=== PATIENT | female | born 1970 | race African-American/Black ===

== ENCOUNTER 2019-03-16 05:27 | Inpatient (IN) | payer OTHER ==
[~2019-03-16] VITALS: Ht 162.6 cm; Wt 83.0 kg
[~2019-03-16 05:27] MED LIST: ACETAMINOPHEN325 M1 PO; BENTYL 20 MG TA20 M1 PO; CLONIDINE HCL0.2 M2 PO; COMPAZINE10 MG PO; CREON DR 12,001 EACH PO; DARVOCET-N 1001 EACH PO; FISH OIL 500 M1 EACH PO; FISH OIL500 M1 PO; GABAPENTIN 100100 MG PO; HYDROCHLOROTHIA25 M1 PO; K-DUR 20 MEQ T20 MEQ PO; LANTUS SC; LISINOPRIL40 MG PO; METOPROLOL ER-1 EACH PO; MIRALAX17 GM PO; MIRALAX255 GM PO; NEURONTIN600 MG PO; NORCO 5-325 TA1 EACH PO; NORVASC 5 MG TAB5 MG PO; NOVOLOG FL100 UNIT/M SUBQ; NOVOLOG100 UNIT/1 SQ; NOVOLOG100 UNIT/1 SUBQ; OMEGA-31000 M1 PO; PERCOCET 10-321 EAC1 PO; PERCOCET 10-321 EACH PO; PERCOCET 5-3251 EACH PO; PHENERGAN 25 MG25 M1 PO; PHENERGAN12.5 M2 RECTAL; PRENATAL; PROMETHAZINE12.5 M1 PO; PROMS25 WY RECTAL; PROTONIX40 MG PO; SENNA-TIME S T1 EACH PO; SEROQUEL 100 M100 M1 PO; SEROQUEL 25 MG25 M1 PO; TOPROL XL25 MG PO; TOPROL XL50 MG PO; TRAMADOL 50 MG50 MG PO; ULTRAM 50MG TAB50 MG PO; XANAX 0.5 MG0.5 M1 PO; ZOFRAN ODT4 MG DISSOLVE
[2019-03-16 05:47] VITALS: BP 186/104
[2019-03-16] MEDS ORDERED: CLONIDINE HCL0.1 MG PO (06:07)
[2019-03-16] MEDS ORDERED: BETAMETHASONE D50 G2 TOP (06:08)
[2019-03-16] MEDS ORDERED: CLOTRIMAZOLE 1%15 G1 TOP (06:09)
[2019-03-16 06:11] LABS: ABSOLUTE EOSINOPHILS 0.1 thou/uL (0.0-0.7); ABSOLUTE LYMPHOCYTES 3.8 thou/uL (0.8-5.3); ABSOLUTE MONOCYTES 0.6 thou/uL (0.0-1.2); ABSOLUTE NEUTROPHILS 2.4 thou/uL (1.6-8.1); BASOPHILS 0.4 %; EOSINOPHILS 1.3 %; HEMATOCRIT 36.6 % (37.0-47.0); HEMOGLOBIN 12.1 gm/dL (12.0-15.0); LYMPHOCYTES 54.5 %; MCH 30.6 pg (26.0-34.0); MCV 92.7 fL (80.0-100.0); MONOCYTES 9.3 %; MPV 7.9 fl. (7.2-11.1); NUCLEATED RBCS 0 /100WBC; PLATELET COUNT* 351 thou/uL (150-400); POLYS 34.5 %; RBC 3.95 mil/uL (4.20-5.00); RDW-CV 13.7 % (10.5-14.5)
[2019-03-16 06:15] LABS: CALCIUM 8.7 mg/dL (8.5-10.1); CREATININE 0.9 mg/dL (0.6-1.3)
[2019-03-16 06:19] LABS: ALBUMIN 3.4 g/dL (3.4-5.0); POTASSIUM 2.6 mmol/L (3.5-5.1); TOTAL BILIRUBIN 0.2 mg/dL (<0.1-1.0); TOTAL PROTEIN 7.5 g/dL (6.4-8.2)
[2019-03-16 06:26] LABS: URINE BILIRUBIN NEGATIVE (Negative); URINE BLOOD NEGATIVE (Negative); URINE CLARITY CLEAR; URINE COLOR YELLOW; URINE GLUCOSE-RANDOM TRACE (Negative); URINE KETONES NEGATIVE (Negative); URINE LEUKOCYTES-REFLEX NEGATIVE (Negative); URINE NITRITE-REFLEX NEGATIVE (Negative); URINE PROTEIN NEGATIVE (Negative); URINE SPECIFIC GRAVITY <= 1.005 (1.005-1.030); URINE UROBILINOGEN 0.2 E.U./dl (0.2-1.0)
[2019-03-16 06:36] LABS: AMP/METHAMP Negative (Negative); BARBITURATES Negative (Negative); BENZODIAZEPINES Negative (Negative); COCAINE Negative (Negative); METHADONE Negative (Negative); OPIATES POSITIVE (Negative); PCP POSITIVE (Negative); THC Negative (Negative)
[2019-03-16 08:09] VITALS: BP 144/109
[2019-03-16] MEDS ORDERED: METOPROLOL SUC100 MG PO (09:47)
[2019-03-16] MEDS ORDERED: ONDANSETRON HCL8 MG PO (09:47)
[2019-03-16 15:20] VITALS: BP 152/93
--- NOTE | 2019-03-16 17:22 | NUR ---
ASSESSMENT COMPLETE. PT ALERT AND ORIENTED X4. PT HAD TELEPSYCH CONSULT FOR ERRATIC BEHAVIOR, SEE REPORT IN CHART. PT IS UP AD ANN-MARIE. PRN PAIN MEDICATION GIVEN NEEEDED. ATIVAN STARTED FOR ANXIETY. PT REPORTS NAUSEA AND VOMITING WITH EATING. MEDICAL RECORDS FROM [facility], [facility] OBTAINED. K+ REPLACED, REDRAW ORDERED TONIGHT. PT IS ACCU CHECK ACHS. PT IS ON ROOM AIR, VSS. SEE ASSESSMENT AND VITALS FOR OTHER DETAILS. CALL LIGHT WITHIN REACH, WILL CONTINUE PLAN OF CARE
[2019-03-16 19:40] VITALS: BP 146/91
--- NOTE | 2019-03-17 05:49 | NUR ---
PT ALERT AND ORIENTED. ANXIOUS. SOMETIMES RESTLESS. PT SLEPT LITTLE THIS SHIFT. MEDS GIVEN PER EMAR. PAIN MEDS GIVEN SEVERAL TIMES THIS SHIFT. PT COMPLAINED OF HAVING ITCHY ALLERY TO MORPHINE. BENADRYL ALSO GIVEN THIS SHIFT. PT CONSTANTLY REQUESTING FOR DILAUDID. MED NOT ON PT'S EMAR. PT ASKED NURSING STAFFS IF ANYONE HAD NEEDLE AND THREAD THAT SHE COULD BORROW TO SEW HER JACKET. NONE GIVEN AND NON AVAILABLE. PT REQUESTED TO STEP OUTSIDE OF HOSPITAL FOR FRESH AIR WHICH WAS NOT GRANTED PER POLICY. HOWEVER, PT INFORMED THAT SHE CAN WALK ROUND THE UNIT'S [address]. CALL LIGHT WITHIN REACH. HOURLY ROUNDINGS MADE. WILL CONTINUE TO MONITOR.
[2019-03-17 07:05] VITALS: BP 146/85
[2019-03-17] MEDS ORDERED: CATAPRES0.1 MG PO (15:00)
[2019-03-17] MEDS ORDERED: LOTENSIN40 MG PO (15:00)
[2019-03-17] MEDS ORDERED: NEURONTIN600 MG PO (15:00)
[2019-03-17] MEDS ORDERED: PANCRELIPASE PO (15:00)
[2019-03-17] MEDS ORDERED: NOVOLOG FL100 UNIT/M SUBQ (15:00)
[2019-03-17] MEDS ORDERED: PERCOCET 10-321 EACH PO (15:00)
[2019-03-17] MEDS ORDERED: METOPROLOL SUCC25 M1 PO (15:00)
[2019-03-17 15:12] VITALS: BP 146/91
[2019-03-17] MEDS ORDERED: BENAZEPRIL HCL40 MG PO (15:19)
--- NOTE | 2019-03-17 15:48 | NUR ---
ASSESSMENT COMPLETE. PT DC HOME. DC INSTRUCTIONS PROVIDED, PT VERBALIZES UNDERSTANDING. ALL BELONGINGS WITH PATIENT. PT DC HOME WITH CAB VOUCHER. SEE ASSESSMENT AND VITALS FOR OTHER DETAILS.
[2019-03-17 16:20] VITALS: BP 146/91
== END 2019-03-17 16:20 | disposition home or self-care (01) | DRG 639 ==
LOC: M.ERS 05:27 → M.TBA-ER 06:34 → M.3W 08:28
PROVIDERS: Emergency Medicine; ADMIT Internal Medicine
DX: E11.649 Type 2 diabetes mellitus with hypoglycemia without coma (principal); E11.42 Type 2 diabetes mellitus with diabetic polyneuropathy; I10 Essential (primary) hypertension; G89.29 Other chronic pain; F16.10 Hallucinogen abuse, uncomplicated; E87.6 Hypokalemia; Z90.81 Acquired absence of spleen; Z88.6 Allergy status to analgesic agent; Z87.891 Personal history of nicotine dependence; Z88.8 Allergy status to other drugs, medicaments and biological substances

== ENCOUNTER 2019-04-03 03:02 | Emergency (ER) | payer OTHER ==
[~2019-04-03] VITALS: Ht 162.6 cm; Wt 86.9 kg
[~2019-04-03 03:02] MED LIST changes: +BENAZEPRIL HCL40 MG PO; +BETAMETHASONE D50 G2 TOP; +CATAPRES0.1 MG PO; +CLONIDINE HCL0.1 MG PO; +CLOTRIMAZOLE 1%15 G1 TOP; +LOTENSIN40 MG PO; +METOPROLOL SUC100 MG PO; +METOPROLOL SUCC25 M1 PO; +ONDANSETRON HCL8 MG PO; +PANCRELIPASE PO
[2019-04-03 03:30] VITALS: BP 144/80
[2019-04-03 04:00] LABS: CALCIUM 8.3 mg/dL (8.5-10.1)
[2019-04-03 04:03] LABS: HEMATOCRIT 37.6 % (37.0-47.0); HEMOGLOBIN 12.4 gm/dL (12.0-15.0); MCH 30.7 pg (26.0-34.0); MCHC 32.9 g/dL (28.0-37.0); MCV 93.3 fL (80.0-100.0); MPV 8.1 fl. (7.2-11.1); NUCLEATED RBCS 0 /100WBC; PLATELET COUNT* 311 thou/uL (150-400); RBC 4.03 mil/uL (4.20-5.00); RDW-CV 14.1 % (10.5-14.5); WBC 9.8 thou/uL (4.0-11.0)
[2019-04-03 04:06] LABS: ALBUMIN 3.4 g/dL (3.4-5.0); POTASSIUM 2.7 mmol/L (3.5-5.1); TOTAL BILIRUBIN 0.1 mg/dL (<0.1-1.0); TOTAL PROTEIN 7.2 g/dL (6.4-8.2)
[2019-04-03 05:26] LABS: ABSOLUTE EOSINOPHILS 0.1 thou/uL (0.0-0.7); ABSOLUTE LYMPHOCYTES 5.2 thou/uL (0.8-5.3); ABSOLUTE MONOCYTES 0.9 thou/uL (0.0-1.2); ABSOLUTE NEUTROPHILS 3.6 thou/uL (1.6-8.1); ATYPICAL LYMPHS 4 %; PLATELET ESTIMATE ADEQUATE; TARGET CELLS 1+
[2019-04-03 05:27] LABS: ANISOCYTOSIS 1+; HYPOCHROMASIA 1+; POIKILOCYTOSIS 1+
== END 2019-04-03 06:06 | disposition home or self-care (01) ==
LOC: M.ERS 03:02
PROVIDERS: Family Medicine
DX: E11.649 Type 2 diabetes mellitus with hypoglycemia without coma (principal); R10.30 Lower abdominal pain, unspecified; E87.6 Hypokalemia; R11.2 Nausea with vomiting, unspecified; I10 Essential (primary) hypertension; E11.41 Type 2 diabetes mellitus with diabetic mononeuropathy; G89.29 Other chronic pain; Z87.891 Personal history of nicotine dependence; Z79.4 Long term (current) use of insulin; Z88.6 Allergy status to analgesic agent; Z88.8 Allergy status to other drugs, medicaments and biological substances